=== PATIENT | female | born 1955 | race African-American/Black ===

== ENCOUNTER 2016-04-24 13:29 | Observation (INO) | payer MEDICARE, OTHER ==
--- NOTE | ~2016-04-24 | DS ---
Unit #: [id number] #: [id number] Patient: ASTRID MARK [id number] [address] [place], [place] [address] [id number] I MR#: [id number] NAME: ASTRID MARK. ROOM: 314 Age: 60 Sex: F Admission Date: 04/24/2016 : 1955 Discharge Date: 04/25/2016 Attending Physician: Jozef Mcdaniels M.D. Primary Care Physician: Generic Doctor Not In System DISCHARGE SUMMARY ADMISSION DIAGNOSIS Chest pain. DISCHARGE DIAGNOSES 1. Atypical chest pain. 2. Near syncope. 3. Hypertension. 4. Hyperlipidemia. 5. Valvular heart disease. 6. Pulmonary hypertension. 7. Type 2 diabetes mellitus. 8. History of obstructive sleep apnea syndrome on CPAP. 9. HIV positive. CONSULTANTS Dr. Galvez, cardiology DIAGNOSTIC STUDIES LABORATORY: TSH was 0.5. hemoglobin A1c 5.9. Troponin 0.03. BNP 24. IMAGING: Chest x-ray did not reveal any active process. CARDIOVASCULAR: Lexiscan stress test results are pending. HOSPITAL COURSE This 60-year-old patient was admitted to the hospital with atypical chest pain, details are as per admission History and Physical. HI was ruled out. Patient was seen by Cardiology in consultation. She had a stress test done. Patient's stress test radionuclide images are present. The patient did not have any chest pain during the Lexiscan stress test portion. PHYSICAL EXAMINATION GENERAL: Today, patient is comfortable, and wants to go home. VITAL SIGNS: Temperature 98 degrees, pulse 61 per minute, respiratory rate 16 per minute, blood pressure 139/70. HEENT: No conjunctival congestion. Sclerae nonicteric. NECK: Supple. Trachea central. LUNGS: Decreased breath sounds bilaterally. No wheezes or crackles. HEART: Regular rate and rhythm. S1, S2. ABDOMEN: Soft, obese, nontender. Bowel sounds are present. EXTREMITIES: Trace pedal edema. SKIN: Warm and dry. Unit #: [id number] #: [id number] Patient: ASTRID MARK RECOMMENDATIONS ON DISCHARGE 1. Condition is stable. 2. Activity as tolerated. DISCHARGE MEDICATIONS 1. Norvasc 5 mg p.o. h.s. 2. Zanaflex 4 mg p.o. t.i.d. p.r.n. 3. Hydrocodone 7.5 mg p.o. q.6 h. p.r.n. 4. Seroquel 150 mg p.o. q.p.m. 5. Atripla one tablet daily. 6. Lopressor 50 mg b.i.d. 7. Cymbalta 60 mg daily. 8. Enteric-coated aspirin 81 mg daily. 9. Lipitor 10 mg daily. 10. Diovan 160 mg daily. 11. Prilosec 20 mg p.o. daily. 12. Zocor 20 mg p.o. h.s. Detailed medications are as per medication reconciliation form. DISPOSITION Patient will be discharged home if Cardiolite stress test is negative and if okay with Cardiology. FOLLOWUP The patient is advised to follow up with primary care physician in one week and with Cardiology as recommended. DISCHARGE INSTRUCTIONS The patient is advised to call primary care physician or go to the ER if her condition changes. The plan was discussed in detail with patient who showed complete understanding. Dictated by... Scott Garcia/yousuf TD: 04/25/2016 17:12 JOB #: [id number] DISCHARGE SUMMARY X Jozef Mcdaniels MD X DISCHARGE SUMMARY
--- NOTE | ~2016-04-24 | BMI ---
[facility] Nutrition Therapy DATE: 04/26/16 Patient: ASTRID MARK Physician: MARITO Address: [address] [place] [address] Room/Bed: [address] [place] [address], Zip: [place] [address] Admit Date: 04/24/16 Date of : [birth year] Height: 5 2 Weight: 287 130.5 HIGH BMI NOTE: ANTHROPOMETRICS: HT: 62" WT: 130.5 KG BMI: 52.6 INTERVENTION: 1. CONSISTENT CARBOHYDRATE DIET RECOMMENDATIONS: 1. ADD HEART HEALTHY DIET RESTRICTION IN ORDER TO PROMOTE GRADUAL WEIGHT LOSS. Respectfully, SAMANTHA OBRIEN RD, LD [employer] [facility] cc: client file
--- NOTE | ~2016-04-24 | DS ---
Unit #: [id number] #: [id number] Patient: ASTRID MARK [id number] [address] [place], [place] [address] [id number] I MR#: [id number] NAME: ASTRID MARK. ROOM: 314 Age: 60 Sex: F Admission Date: 04/24/2016 : 1955 Discharge Date: 04/26/2016 Attending Physician: Jozef Mcdaniels M.D. DISCHARGE SUMMARY ADDENDUM The patient underwent cardiac catheterization procedure today. Per documentation of Dr. Galvez, the plan is medical treatment. No surgical intervention is planned at this time. Patient has been cleared for discharge home after 6 p.m. tonight once bedrest is complete, post cath discharge criteria met and if okay with attending physician. DISCHARGE MEDICATIONS Patient's discharge medication reconciliation form has been updated as follows: 1. Neurontin per home dose, 1-2 tabs p.o. 3 times daily. 2. Cymbalta 60 mg p.o. daily. 3. Metformin 500 mg p.o. b.i.d. The patient is not to resume this medication until after 6 p.m. on April 28, 2016, as she has received cardiac cath dye. 4. Seroquel XR 150 mg p.o. every evening. 5. Atripla 1 tab p.o. daily. 6. Norvasc dosage change from 10 mg p.o. daily to 5 mg p.o. daily. 7. Lopressor 50 mg p.o. every 12 hours. 8. Zocor 20 mg p.o. daily. 9. Valsartan 160 mg p.o. daily. 10. Lisinopril 5 mg p.o. daily has been discontinued. 11. Black cohosh 540 mg p.o. daily has been discontinued. 12. Aspirin 81 mg p.o. daily. 13. Mobic 7.5 mg p.o. daily. 14. Vicodin ES 7.5/300 mg tab, 1 p.o. q.i.d. p.r.n. pain from home medication supply. No prescription written. 15. Omeprazole per home dose 2 tabs p.o. daily. 16. Potassium chloride 20 mEq p.o. daily has been discontinued. 17. Zanaflex 4 mg p.o. t.i.d. daily p.r.n. muscle spasm. FOLLOWUP 1. With Dr. Galvez per his orders. 2. With her primary care physician as per previously dictated discharge orders. 18. 1. Dictated by... Jacque Long A.P.R.N. for Scott Garcia Unit #: [id number] #: [id number] Patient: ASTRID MARK TD: 04/26/2016 20:46 JOB #: [id number] DISCHARGE SUMMARY X Jacque Long CONTRACT ATTORNEY X DISCHARGE SUMMARY
--- NOTE | ~2016-04-24 | CO ---
Unit #: [id number] #: [id number] Patient: ASTRID MARK [id number] [address] [id number] [facility]. [place], [place] [address] [id number] I MR#: [id number] NAME: ASTRID MARK. ROOM: 314 Age: 60 Sex: F Admission Date: 04/24/2016 : 1955 Attending Physician: Jozef Mcdaniels M.D. Consultation Date: 04/25/2016 CONSULTATION REPORT REASON FOR CONSULTATION Chest pain and near syncope. HISTORY OF PRESENT ILLNESS This is a 60-year-old female, who reports having hypertension, diabetic, Hyperlipidemia, obstructive sleep apnea, history of HIV and follows in [place] [facility] and has reports that she has valvular heart disease and pulmonary hypertension, morbid obesity, who came to the hospital after having a near syncopal episode and chest pain. According to the patient, she has been having some intermittent midsternal chest pain that feels like spasms in nature. She said they come sudden-onset, they are sharp, pressing like spasm like in nature. She get like feeling slightly diaphoretic and get short of breath. The patient states most recently that she has been having to have 2 to 3 pillow orthopnea, but that is not a new problem and occasional proximal nocturnal dyspnea. She has lost 30 pounds over the last 3 months intentionally by trying to eat healthier. She has been followed Dr. Connell at [place] in the past, but has not seen for about 2 years. The patient said that the pain in her chest which was felt like a spasm did not radiate up into the neck; bilateral jaws, shoulders, arms, or elbow. She did not feel any palpitations. No recent cough, fever, or chills. No nausea, vomiting, diarrhea, or abdominal pain. She was walking at a [employer] and she, beside having the spasms in her chest, became very dyspneic and lightheaded. She made into [employer] and she had to sit down, she felt very lightheaded like she was going to pass out. She became diaphoretic and she attempted to go up to another level in the [employer] and then she again had the same symptoms but they were worsening. They called EMS. The patient reports that they told her she had a heart rate in the upper 40s and blood pressures in the systolic in the 80s. The blood sugar was 145. Her telemetry was showing sinus bradycardia. Cardiology has been consulted to assist with evaluation of her chest pain and her near syncopal episode. PAST MEDICAL HISTORY 1. Hypertension. 2. Hyperlipidemia. 3. Diabetes mellitus, type 2. 4. Obstructive sleep apnea, uses CPAP. 5. Degenerative disk disease, arthritis. 6. Asthma. 7. History of HIV, follows Infectious Disease at [facility], is on Atripla. Unit #: [id number] #: [id number] Patient: ASTRID MARK 8. Reports cardiac cath at [place] greater than 5 years ago. Reports no blockages, but has pulmonary hypertension. 9. Reports valvular heart disease. No echo report seen. 10. Morbid obesity, 287 pounds with a BMI of 53. 11. Family history of CAD. Her mother had coronary artery stents. 12. Nonsmoker. PAST SURGICAL HISTORY 1. Hysterectomy. 2. Knee surgery. HOME MEDICATIONS Seroquel 150 mg p.o. in the evening, Vicodin 7.5/300 one tablet q.i.d. p.r.n., tizanidine 4 mg one tablet t.i.d., Norvasc 10 mg one tablet daily, Neurontin 1 to 2 tablets t.i.d. is to clarify the dose, Atripla one tablet p.o. daily, Glucophage 500 mg p.o. b.i.d., omeprazole two tablets b.i.d. clarify the dose, Cymbalta 60 mg one tablet daily, metoprolol 50 mg p.o. b.i.d., Mobic 7.5 mg p.o. daily, Zocor 20 mg p.o. daily, losartan 160 mg p.o. daily, black cohosh 540 mg p.o. daily, potassium chloride 20 mEq p.o. daily, lisinopril 5 mg p.o. daily, and aspirin 81 mg daily. ALLERGIES No known drug allergies. SOCIAL HISTORY The patient lives alone in her home. She has been a lifelong nonsmoker. No alcohol or illicit drug abuse. She volunteers in a daycare occasionally. FAMILY HISTORY Her mother is living and has coronary artery disease and has some coronary stents. Father , questionable coronary artery disease. In siblings, no known coronary artery disease. REVIEW OF SYSTEMS See details in HPI. PHYSICAL EXAMINATION GENERAL: Ms. Mark is a 60-year-old female, in no acute respiratory distress. She is awake, alert, and oriented. VITAL SIGNS: Blood pressure lying is 150/84, heart rate 62, respirations 18. Blood pressure sitting is 133/78 with a heart rate 67. Blood pressure standing 124/84 with a heart rate of 81. She is afebrile, O2 saturations 100% on room air. NECK: Trachea midline. No thyromegaly or lymphadenopathy. Normal carotid upstrokes. No jugular venous distention. HEART: S1, S2. Regular rate and rhythm. No clicks, murmurs, or rubs. LUNGS: Diminished, otherwise clear. ABDOMEN: Obese, soft, and nontender. EXTREMITIES: Pedal pulses are palpable. Trace pedal edema. DIAGNOSTIC STUDIES LABORATORY RESULTS: Glucose is 82, BUN 13, creatinine 0.9, eGFR is above 60, sodium 137, potassium 4.1, chloride 105, CO2 of 28. Calcium is 8.5, total protein 6.5, albumin 3.2, bilirubin total 0.4, AST 17, ALT 17, alkaline phosphatase is 58. WBCs 5.8, hemoglobin 10.3, hematocrit 32.2, and platelets is 309. Initial cardiac enzymes; CK-MB is less than 1.0. Troponin less than 0.05. CK-MB is less than 1.0. Troponin 0.05. INR is Unit #: [id number] #: [id number] Patient: ASTRID MARK 1.0. IMAGING STUDIES: Chest x-ray shows no active disease, upper limits of normal to mild cardiomegaly. CARDIOVASCULAR STUDIES: EKG shows normal sinus rhythm with ventricular rate 61 beats per minute, otherwise nothing acute. IMPRESSION 1. Chest pain-atypical. 2. Orthostatic hypotension. 3. Dizziness, near syncope. 4. Diabetes mellitus, type 2. 5. Obesity. 6. Anxiety. 7. Hyperlipidemia. 8. Obstructive sleep apnea, uses CPAP. 9. Asthma. 10. Degenerative disk disease and arthritis. 11. History of human immunodeficiency virus, follows Infectious Disease at [facility]. 12. Reports having pulmonary hypertension and valvular heart disease, details unavailable. 13. Morbid obesity, BMI of 53. PLAN 1. Cardiology consult to assist with evaluation and management. Cardiac enzymes are negative. EKG does not show anything acute. 2. The patient have multiple comorbidities and she spent some time since she has had ischemic heart disease workup even though her chest pain is somewhat atypical. We will proceed with a Lexiscan Cardiolite stress test for further evaluation. 3. Obtain a 2D echo to re-evaluate her LV function and valves. We will try to obtain records from [facility], especially the 2D echo and the catheterization report for comparison and review. 4. Dr. Galvez looked the patient's medications and she has recently lost 30 pounds over the past 3 to 4 months that maybe she needs adjustment in her medications. He will decrease the dose of amlodipine and stop the lisinopril, because she is already on Diovan. 5. On exam, there is no signs or symptoms of acute congestive heart failure. 6. We will add TSH to her labs and fasting lipid profile and evaluate. 7. Further recommendations pending per Dr. Galvez. Dictated by... Tomas DiegoPYvette for Scott Maldonado/israell TD: 04/26/2016 03:31 JOB #: [id number] CC: Shiv Connell M.D. Unit #: [id number] #: [id number] Patient: ASTRID MARK CONSULTATION REPORT X Berta Mcbride APRN X CONSULTATION REPORT
--- NOTE | ~2016-04-24 | CR72 ---
[facility] A Service of [facility] & [facility] RADIOLOGY TEXT RESULTS PATIENT: ASTRID MARK LOCATION: [facility] 314-01 : [birth year] UNIT #: [id number] AGE: [address]: Jozef Mcdaniels MD SEX: F ORDER DR: [id number] [facility] [address] [facility]. [place], [place] [address] [id number] MR#: [id number] Acc #: [id number] NAME: ASTRID MARK. : 1955 SEX: F STUDY DATE/TIME: 04/24/2016 13:07 UNIT: [facility] ROOM: STUDY DESCRIPTION: CR Chest Single View Portable Attending Physician: Chase Melo M.D. Ordering Physician: Ed Terrence Gong M.D. Primary Care Physician: Brandon Not Listed MEDICAL IMAGING REPORT This report is preliminary unless electronic signature is present EXAM Portable chest. INDICATION Chest pain and dizziness today. PROCEDURE Frontal view chest. COMPARISON STUDIES 05/09/2015 FINDINGS Upper limits of normal heart size to mildly enlarged. Lungs are clear. No pleural fluid. No pneumothorax. IMPRESSION No active process. Upper limits of normal to mild cardiomegaly. Dictated by... Chase Sanabria M.D. THIS IS AN ELECTRONICALLY VERIFIED REPORT Chase Sanabria M.D. at 04/25/2016 9:51 AM ALEX/neal TD: 04/24/2016 15:19 JOB #: [id number] MEDICAL IMAGING REPORT COPY
--- NOTE | ~2016-04-24 | ST ---
Unit #: [id number] #: [id number] Patient: ASTRID MARK [id number] [facility]. [place] [id number] [facility]. [place], [place] [address] [id number] I MR#: [id number] NAME: ASTRID MARK. : 1955 SEX: F STUDY DATE/TIME: 04/25/2016 UNIT: C3A PCU ROOM: [facility] STUDY DESCRIPTION: Attending Physician: Jozef Mcdaniels M.D. CARDIOLOGY REPORT EXAM Lexiscan Cardiolite stress test. FINDINGS Baseline EKG: Normal sinus rhythm with ventricular rate 65 beats per minute, poor R wave progression, and nondiagnostic Q waves in inferolateral leads. PROCEDURE Lexiscan: This is a four minute test with Lexiscan being injected within the first minute followed by Cardiolite. EKG during the test was equivocal to baseline. No acute ischemic changes. Patient had no complaints of chest pain, palpitations, or dizziness. She had increased shortness of breath and fatigue which resolved in recovery phase. Maximum heart rate response was 96 beats per minute with a maximum blood pressure response of 150/94 mmHg. Cardiolite was injected after Lexiscan within the first minute of the test. Radionuclide tests pending. Please correlate with nuclear images. Dictated by... Berta Mcbride A.P.R.N. for Scott Gregory/jose francisco TD: 04/25/2016 15:23 JOB #: [id number] CARDIOLOGY REPORT X Berta Mcbride APRN CARDIOLOGY REPORT
--- NOTE | ~2016-04-24 | EKG ---
PATIENT: ASTRID MARK UNIT #: [id number] Ventricular Rate: 61 BPM Atrial Rate: 61 BPM P-R Interval: 158 ms QRS Duration: 86 ms Q-T Interval: 428 ms QTC Calculation(Bezet): 430 ms P [place]: 26 degrees Calculated R [place]: 42 degrees Calculated T [place]: 31 degrees Diagnosis Line: Normal sinus rhythm Diagnosis Line: Normal ECG Diagnosis Line: No previous ECGs available Diagnosis Line: Confirmed by MIKA ELIZONDO MD ([id number]) on Diagnosis Line: 04/24/2016 5:23:58 PM INTERPRETING MD: NINO
--- NOTE | ~2016-04-24 | TH ---
Unit #: [id number] #: [id number] Patient: ASTRID MARK [id number] [address] [place], [place] [address] [id number] I MR#: [id number] NAME: ASTRID MARK. : 1955 SEX: F STUDY DATE/TIME: 04/25/2016 UNIT: C3A PCU ROOM: 314 STUDY DESCRIPTION: Lexiscan stress test - nuclear Attending Physician: Jozef Mcdaniels M.D. Primary Care Physician: Generic Doctor Not In System CARDIOLOGY REPORT PROCEDURE PERFORMED Lexiscan Cardiolite stress test - Nuclear portion. PROCEDURE Using technetium 99m-labeled Cardiolite, rest and stress SPECT images were obtained. Multiple SPECT images were obtained in various views, including horizontal and vertical long axis and short axis views of the left ventricle. Images were obtained by gated SPECT method. The patient was administered 11.38 mCi of Cardiolite at rest. The patient was administered 27 mCi of Cardiolite after Lexiscan infusion was completed. On the stress images, there is a small area of moderately decreased tracer uptake activity in the anteroapical wall and a small area of mildly decreased tracer uptake activity in the inferoapical wall. The rest images show a small area of decreased tracer uptake activity inferoapically. Comparing the rest and stress images, a small area of stress-induced ischemia involving the anteroapical and inferoapical grey of the left ventricle cannot be ruled out. The left ventricular ejection fraction is calculated to be 61%. There is no focal wall motion abnormality seen. The technical quality of the images is extremely poor. CONCLUSION 1. Small areas of stress-induced ischemia involving the anteroapical and inferoapical grey of the left ventricle cannot be ruled out. 2. The left ventricular ejection fraction is calculated to be 61%. 3. There is no focal wall motion abnormality seen. 4. Technically extremely limited study, and the interpretation is limited because of the patient's large body habitus. Clinical correlation is requested. Dictated by... Scott Gregory TD: 04/25/2016 15:54 JOB #: [id number] Unit #: [id number] #: [id number] Patient: MARK,ASTRID D CARDIOLOGY REPORT X Fern Arvizu MD <ELECTRONICALLY SIGNED> 09/24/16 1428 CARDIOLOGY REPORT
--- NOTE | ~2016-04-24 | EKG ---
PATIENT: ASTRID MARK UNIT #: [id number] Ventricular Rate: 57 BPM Atrial Rate: 57 BPM P-R Interval: 162 ms QRS Duration: 92 ms Q-T Interval: 450 ms QTC Calculation(Bezet): 438 ms P [place]: 22 degrees Calculated R [place]: 48 degrees Calculated T [place]: 40 degrees Diagnosis Line: Sinus bradycardia Diagnosis Line: Otherwise normal ECG Diagnosis Line: When compared with ECG of 24-APR-2016 13:12, Diagnosis Line: No significant change was found Diagnosis Line: Confirmed by CAIN BETANCOURT MD ([id number]) on 04/26/2016 Diagnosis Line: 7:18:41 AM INTERPRETING MD: ASIA BERGER
--- NOTE | ~2016-04-24 | HP ---
Unit #: [id number] #: [id number] Patient: ASTRID MARK [id number] [facility] [address] [place], [place] [address] [id number] MR#: [id number] NAME: ASTRID MARK. ROOM: Age: 60 Sex: F Admission Date: 04/24/2016 : 1955 Attending Physician: Chase Melo M.D. Primary Care Physician: Generic Doctor Not In System HISTORY AND PHYSICAL CHIEF COMPLAINT Near syncope at [facility]. HISTORY OF PRESENT ILLNESS The patient is a 60-year-old female with a past medical history of valvular heart disease, hypertension, hyperlipidemia, pulmonary hypertension, diabetes, arthritis, degenerative disc disease, obstructive sleep apnea, HIV, who presented to the emergency department for evaluation of the above. The patient states that she has had intermittent chest pain for the past at least couple of days. The most recent episode was this morning around 8:30. She describes the pain as a "spasm." It is in the mid chest. It does not radiate. She did have associated diaphoresis. She states that it typically lasts a few seconds and resolves spontaneously. Today, following the spasm, she went to [facility]. She states that she was short of breath when walking into [facility] as well as walking up steps. She became short of breath and diaphoretic. She also felt somewhat lightheaded like she would "pass out." She states that she has two to three pillow orthopnea. That is not a new problem. She also has paroxysmal nocturnal dyspnea. She states that she has lost about 30 pounds over the past three months. She states that she has not been trying to lose weight. She is followed by Dr. Connell but has not seen him for two to three years. In the emergency department, pulse and blood pressure were 56 and 117/59 respectively. EKG shows normal sinus rhythm with rate of 61 beats per minute. Chest x-ray shows nothing acute. Initial cardiac enzymes are negative. She was given aspirin as well as a half inch of nitro paste. She is being admitted to [facility] for evaluation and further treatment. PAST MEDICAL HISTORY 1. Admission to [facility] several years ago for pneumonia (no records). 2. Valvular heart disease with no echocardiogram results in [facility]. 3. Hypertension. 4. Hyperlipidemia. 5. Pulmonary hypertension, again with no echocardiogram results in [facility]. 6. Arthritis. 7. Degenerative disc disease. 8. Diabetes. 9. Obstructive sleep apnea, on CPAP. 10. HIV positive, followed by [facility] at [place]. She does not Unit #: [id number] #: [id number] Patient: ASTRID MARK know her CD4 count or viral load. She is maintained on Atripla. She states that she has been seen there within the past couple of months. PAST SURGICAL HISTORY 1. Cardiac catheterization at [facility] more than five years ago. 2. Hysterectomy. 3. Knee surgery. SOCIAL HISTORY The patient lives alone. There is no tobacco or alcohol use. She works in a daycare. FAMILY HISTORY Notable for her mother having coronary artery disease. ALLERGIES No known allergies. MEDICATIONS Home medications include: 1. Seroquel 150 mg every evening. 2. Vicodin 7.5/300 four times daily. 3. Tizanidine 4 mg t.i.d. 4. Norvasc 10 mg daily. 5. Neurontin one to two tablets t.i.d. 6. Atripla daily. 7. Metformin 500 mg twice daily. 8. Omeprazole two tablets daily. 9. Cymbalta 60 mg daily. 10. Lopressor 50 mg twice daily. 11. Meloxicam 7.5 mg daily. 12. Zocor 20 mg daily. 13. Valsartan 160 mg daily. 14. Black cohosh daily. 15. Potassium chloride 20 mEq daily. 16. Lisinopril 5 mg daily. 17. Aspirin 81 mg daily. REVIEW OF SYSTEMS A ten point review of systems is negative except as indicated in the HPI. DIAGNOSTIC STUDIES CARDIOVASCULAR: EKG shows normal sinus rhythm with rate of 61 beats per minute. IMAGING: Chest x-ray shows no active disease. LABORATORY: Basic metabolic panel is normal. BNP is 24. INR is 1. Complete blood count notable for hemoglobin and hematocrit of 11 and 33.6 respectively. Troponin is less than 0.05. PHYSICAL EXAMINATION VITAL SIGNS: Temperature is 98.1, pulse 56, respirations 18, blood pressure 117/59. Oxygen saturation is 99% on room air. GENERAL: The patient is an -Turkish female who is awake and alert, in no acute distress. HEENT: The head is atraumatic. Mucous membranes are moist. Unit #: [id number] #: [id number] Patient: ASTRID MARK NECK: Supple. Trachea is midline. CARDIOVASCULAR: Regular rate and rhythm. LUNGS: Clear to auscultation bilaterally with no increased work of breathing. ABDOMEN: Soft, nontender with bowel sounds present in all four quadrants. EXTREMITIES: Nontender with no pedal edema. NEURO: The patient is awake and alert. She follows commands. PSYCH: Mood and affect are normal. The patient is cooperative. SKIN: Skin of examined areas is warm and dry. ASSESSMENT The patient is a 60-year-old female with: 1. Chest pain: The patient has multiple risk factors including hypertension, hyperlipidemia, morbid obesity, diabetes. She had a cardiac catheterization more than five years ago at [facility] (no records). 2. Near syncope: The patient has a history of valvular heart disease. 3. History of valvular heart disease (no echocardiogram results available), followed by Dr. Connell. 4. Hypertension. 5. Hyperlipidemia. 6. Pulmonary hypertension. 7. Diabetes. 8. Arthritis. 9. Degenerative disc disease. 10. Obstructive sleep apnea, on CPAP. 11. Morbid obesity with a BMI of 53. 12. HIV positive, followed by [facility]. PLAN 1. Admit for observation to intermediate level. 2. Healthy heart consistent carb diet. 3. NPO after midnight for possible stress test. 4. Serial cardiac enzymes. 5. Fasting lipid panel. 6. 2D echo. 7. Orthostatic q. shift. 8. Fall precautions. 9. Supplemental oxygen 2 to 4 L to maintain saturations greater than 92%. 10. Continue nitro paste one half inch q.6 hours. 11. Get cardiac cath report from [place]. 12. Consult Dr. Galvez regarding chest pain and near syncope. 13. Hemoglobin A1c. 14. Low dose sliding scale insulin with Accu-Cheks with CPAP at home settings. 15. Repeat labs in the morning. 16. SCDs for DVT prophylaxis. 17. Additional workup and consultants based on upon. Dictated by Tabitha Cody M.D. [place] Unit #: [id number] #: [id number] Patient: ASTRID MARK TD: 04/24/2016 15:44 JOB #: [id number] HISTORY AND PHYSICAL X Tabitha Cody MD X HISTORY AND PHYSICAL
[2016-04-24 13:18] LABS: POC - CKMB <1.0 ng/mL (0.0-7.9); POC - TROPONIN <0.05 ng/mL (<=0.05)
[2016-04-24 13:28] LABS: BASOPHIL% 0.5 % (0-2.5); EOSINOPHIL# 0.1 X10e3 (0-0.7); EOSINOPHIL% 0.9 % (0.0-7.0); HEMATOCRIT 33.6 % (35.0-45.0); LYMPHOCYTE# 2.4 X10e3 (1.0-3.5); LYMPHOCYTE% 38.5 % (17.0-45.0); MEAN CORPUSCULAR HEMOGLOBIN 28.5 PG (28-34); MEAN CORPUSCULAR HGB CONC 32.7 g/dL (30-36); MEAN PLATELET VOLUME 7.6 FL (6.5-11.5); MONOCYTE# 0.5 X10e3 (0-1.0); MONOCYTE% 7.6 % (3.0-12.0); NEUTROPHIL# 3.3 X10e3 (1.5-7.1); NEUTROPHIL% 52.5 % (40-75); PLATELET COUNT 309 X10e3 (140-420); RED BLOOD COUNT 3.86 X10e (3.90-5.30); RED CELL DISTRIBUTION WIDTH 14.2 % (11.0-15.5); WHITE BLOOD COUNT 6.3 X10e3 (4.0-10.5)
[~2016-04-24 13:29] MED LIST: AVANDIA PO; BLACK COHOSH; CALAN SR PO; FERROUS SULFATE PO; FLEXERIL PO; HCTZ PO; LASIX PO; MULTI-VIT/MIN P1 TAB PO; NEURONTIN PO; NORCO 5/325 TAB1 TAB PO; PROTONIX PO; REGLAN PO; TOPAMAX PO; VIT B 6; VIT E PO; VITAMIN C PO; [UNRECOGNIZED DRUG - OTHER]
[2016-04-24 13:31] LABS: DIFF IND NO
[2016-04-24 13:40] LABS: PARTIAL THROMBOPLASTIN TIME 27.1 SECONDS (23.5-31.3); PROTHROMBIN TIME (PATIENT) 10.7 SECONDS (9.6-11.5)
[2016-04-24 13:55] LABS: BLOOD UREA NITROGEN 16 mg/dL (9-23); BUN/CREATININE RATIO 17.77; CALCIUM SERUM 8.9 mg/dL (8.4-10.2); CARBON DIOXIDE 27 mmol/L (22-31); CHLORIDE 104 mmol/L (100-111); CREATININE SERUM 0.9 mg/dL (0.6-1.4); GLOM FILT RATE Estimated ABOVE60 mL/min (>60); GLUCOSE FASTING 94 mg/dL (70-110); POTASSIUM 4.3 mmol/L (3.5-5.1); SODIUM 139 mmol/L (135-145)
[2016-04-24] MEDS ORDERED: VICODIN ES 7.51 EAC1 PO (14:36)
[2016-04-24] MEDS ORDERED: SEROQUEL XR150 MG PO (14:36)
[2016-04-24] MEDS ORDERED: NEURONTIN600 MG PO (14:37)
[2016-04-24] MEDS ORDERED: TIZANIDINE HCL4 M1 PO (14:37)
[2016-04-24] MEDS ORDERED: NORVASC PO (14:37)
[2016-04-24] MEDS ORDERED: METFORMIN PO (14:38)
[2016-04-24] MEDS ORDERED: ATRIPLA1 TAB PO (14:38)
[2016-04-24] MEDS ORDERED: OMEPRAZOLE20 M1 PO (14:38)
[2016-04-24] MEDS ORDERED: LOPRESSOR PO (14:39)
[2016-04-24] MEDS ORDERED: DULOXETINE HCL60 MG PO (14:39)
[2016-04-24] MEDS ORDERED: MOBIC PO (14:39)
[2016-04-24] MEDS ORDERED: BLACK COHOSH540 MG PO (14:40)
[2016-04-24] MEDS ORDERED: VALSARTAN160 MG PO (14:40)
[2016-04-24] MEDS ORDERED: ZOCOR20 MG PO (14:40)
[2016-04-24] MEDS ORDERED: LISINOPRIL5 MG PO (14:41)
[2016-04-24] MEDS ORDERED: POTASSIUM CHLO20 ME1 PO (14:41)
[2016-04-24] MEDS ORDERED: ASPIRIN81 MG PO (14:42)
[2016-04-24 17:52] LABS: POC - CKMB <1.0 ng/mL (0.0-7.9); POC - TROPONIN <0.05 ng/mL (<=0.05)
[2016-04-25 05:46] LABS: BASOPHIL% 0.4 % (0-2.5); EOSINOPHIL# 0.1 X10e3 (0-0.7); EOSINOPHIL% 1.4 % (0.0-7.0); HEMATOCRIT 32.2 % (35.0-45.0); HEMOGLOBIN 10.3 gm/dL (12.0-16.0); LYMPHOCYTE# 3.2 X10e3 (1.0-3.5); LYMPHOCYTE% 54.2 % (17.0-45.0); MEAN CELL VOLUME 86.8 FL (83-96); MEAN CORPUSCULAR HEMOGLOBIN 27.8 PG (28-34); MEAN PLATELET VOLUME 7.3 FL (6.5-11.5); MONOCYTE# 0.5 X10e3 (0-1.0); MONOCYTE% 9.3 % (3.0-12.0); NEUTROPHIL% 34.7 % (40-75); PLATELET COUNT 309 X10e3 (140-420); RED BLOOD COUNT 3.71 X10e (3.90-5.30); RED CELL DISTRIBUTION WIDTH 13.9 % (11.0-15.5); WHITE BLOOD COUNT 5.8 X10e3 (4.0-10.5)
[2016-04-25 05:49] LABS: DIFF IND YES
[2016-04-25 06:00] LABS: ALBUMIN SERUM 3.2 g/dL (3.5-5.0); ALKALINE PHOSPHATASE 58 U/L (32-92); ALT (SGPT) 17 U/L (10-40); AST (SGOT) 17 U/L (10-42); BILIRUBIN,TOTAL 0.4 mg/dL (0.2-2.0); BLOOD UREA NITROGEN 13 mg/dL (9-23); BUN/CREATININE RATIO 14.44; CALCIUM SERUM 8.5 mg/dL (8.4-10.2); CARBON DIOXIDE 28 mmol/L (22-31); CHLORIDE 105 mmol/L (100-111); CHOLESTEROL 134 mg/dL (0-200); CREATININE SERUM 0.9 mg/dL (0.6-1.4); GLOM FILT RATE Estimated ABOVE60 mL/min (>60); GLUCOSE FASTING 82 mg/dL (70-110); HDL CHOLESTEROL 33 mg/dL (35-95); LDL CHOLESTEROL 78 mg/dL ([, -130]); LDL/HDL RATIO 2 RATIO (0-4); POTASSIUM 4.1 mmol/L (3.5-5.1); PROTEIN TOTAL SERUM 6.5 g/dL (6.0-8.3); SODIUM 137 mmol/L (135-145); TRIGLYCERIDES 117 mg/dL (10-160)
[2016-04-25 06:18] LABS: %MB 0.9 % (0.0-4.0); MB 0.8 ng/ml
[2016-04-25 07:26] LABS: PLATELET ESTIMATE NORMAL (NORMAL)
[2016-04-26 06:04] LABS: HEMATOCRIT 32.7 % (35.0-45.0); HEMOGLOBIN 10.6 gm/dL (12.0-16.0); MEAN CELL VOLUME 87.4 FL (83-96); MEAN CORPUSCULAR HEMOGLOBIN 28.4 PG (28-34); MEAN CORPUSCULAR HGB CONC 32.5 g/dL (30-36); MEAN PLATELET VOLUME 7.5 FL (6.5-11.5); RED BLOOD COUNT 3.74 X10e (3.90-5.30); RED CELL DISTRIBUTION WIDTH 14.1 % (11.0-15.5); WHITE BLOOD COUNT 5.8 X10e3 (4.0-10.5)
[2016-04-26 06:19] LABS: INR 1.1; PROTHROMBIN TIME (PATIENT) 11.4 SECONDS (9.6-11.5)
[2016-04-26 07:05] LABS: BLOOD UREA NITROGEN 15 mg/dL (9-23); BUN/CREATININE RATIO 18.75; CALCIUM SERUM 8.6 mg/dL (8.4-10.2); CARBON DIOXIDE 28 mmol/L (22-31); CHLORIDE 100 mmol/L (100-111); CREATININE SERUM 0.8 mg/dL (0.6-1.4); GLOM FILT RATE Estimated ABOVE60 mL/min (>60); GLUCOSE FASTING 102 mg/dL (70-110); POTASSIUM 4.3 mmol/L (3.5-5.1); SODIUM 138 mmol/L (135-145)
== END 2016-04-26 19:56 | disposition home or self-care (01) ==
LOC: CED 13:29 → CEDOF 15:15 → C3A PCU 22:00
PROVIDERS: Emergency Medicine; Internal Medicine Cardiovascular Disease
DX: R07.89 Other chest pain (principal); R55 Syncope and collapse; I10 Essential (primary) hypertension; I95.1 Orthostatic hypotension; E78.5 Hyperlipidemia, unspecified; I08.1 Rheumatic disorders of both mitral and tricuspid valves; I27.2 Other secondary pulmonary hypertension; E11.9 Type 2 diabetes mellitus without complications; Z79.84 Long term (current) use of oral hypoglycemic drugs; M19.90 Unspecified osteoarthritis, unspecified site; G47.33 Obstructive sleep apnea (adult) (pediatric); E66.01 Morbid (severe) obesity due to excess calories; Z68.43 Body mass index [BMI] 50.0-59.9, adult; Z21 Asymptomatic human immunodeficiency virus [HIV] infection status; F41.9 Anxiety disorder, unspecified; Z79.82 Long term (current) use of aspirin
CPT/HCPCS: 36415; 71010; 78452; 80048; 80053; 80061; 82550; 82553; 82947; 83036; 83880; 84443; 84484; 85025; 85027; 85610; 85730; 93005; 93017; 93306; 94660; 94760; 96374; 96376; 99285; A9500; C1769; C1887; C1894; G0378; J1644; J2250; J2270; J2785; J3010